=== PATIENT | female | born 1995 | race Caucasian/White ===

== ENCOUNTER → 2019-06-22 15:03 | Outpatient (CLI) | payer OTHER, MEDICAID, SELFPAY ==
--- NOTE | 2019-06-22 15:08 | DI.US.S_ITS ---
PROCEDURE: US OB <= 14 WEEKS FETUS INDICATIONS: SIZE AND DATES OUTSIDE/PRIOR DATING DATA: Last menstrual period (LMP): . LMP-based estimated date of delivery (KIM): 01/31/2020. First dating scan (date and location): 06/22/2019. Estimated date of delivery (KIM) from first dating scan: 02/03/2020. TECHNIQUE: Real-time scanning was performed of the fetus and maternal pelvic organs, with image documentation. COMPARISON: None. FINDINGS: Embryo: Mean gestational sac diameter of 3.0 cm corresponding to 8 weeks 0/7 days. [place] rump length measuring 1.43 cm corresponding to 7 weeks 5/7 days. heart rate 162 beats per minute. Yolk sac is visualized. No angelic-gestational hemorrhage. Measurement variability in dating: +/- 4 weeks by LMP, +/- 7 days by mean sac diameter (use before 6 weeks gestation if crown-rump length not able to be measured), +/- 5 days by crown-rump length (up to 8 weeks 6 days gestation), +/- 7 days by crown-rump length (up to 13 weeks 6 days gestation). Maternal organs: Right ovary is within normal limits. Probable right corpus luteum. Left ovary is not identified. Limited images through the kidneys demonstrate no hydronephrosis. Cervical length 3.4 cm. IMPRESSION: 1. Esquivel living intrauterine at 7 weeks 5/7 days based on today's crown-rump length. 2. No angelic-gestational hemorrhage. Dictated by: Edmund Powell M.D. on 06/22/2019 at 16:03 Approved by: Edmund Powell M.D. on 06/22/2019 at 16:06
== END ==
PROVIDERS: Visit Provider Specialist
DX: Z34.91 Encounter for supervision of normal pregnancy, unspecified, first trimester (principal); Z3A.01 Less than 8 weeks gestation of pregnancy
CPT/HCPCS: 76801

== ENCOUNTER → 2019-09-08 16:18 | Outpatient (CLI) | payer OTHER, MEDICAID, SELFPAY ==
[2019-09-08 17:40] LABS: Add Manual Diff / Slide Review NO; Basophils Absolute Auto 0 /uL (0-100); Basophils Percent Auto 0.2 % (0-2); Eosinophils Absolute Auto 600 /uL (0-450); Eosinophils Percent Auto 3.8 % (2-4); Hematocrit 38.2 % (36-46); Hemoglobin 13.1 g/dL (12.0-16.0); Lymphocytes Absolute Auto 1900 /uL (1100-4500); Lymphocytes Percent Auto 12.5 % (25-40); Mean Corpuscular HGB Conc 34.3 % (30-36); Mean Corpuscular Hemoglobin 30.7 PG (26-34); Mean Corpuscular Volume 89.6 fL (80-100); Monocytes Absolute Auto 900 /uL (0-900); Monocytes Percent Auto 6.2 % (3-14); Neutrophils Absolute Auto 11500 /uL (1500-7000); Neutrophils Percent Auto 77.3 % (50-75); Platelet Count 156 X10^3/uL (150-400); Red Blood Cell Count 4.26 X10^6/uL (4.0-5.2); Red Cell Distribution Width 12.9 % (11.6-14.8); White Blood Cell Count 14.9 X10^3/uL (4.5-11.0)
[2019-09-08 18:02] LABS: Appearance Urine UA SL CLOUDY; Bilirubin Urine UA NEGATIVE (NEGATIVE); Color Urine UA YELLOW; Glucose Urine UA NEGATIVE (Negative); Ketones Urine UA TRACE (NEGATIVE); Leukocyte Esterase Urine UA NEGATIVE (NEGATIVE); Nitrite Urine UA NEGATIVE (Negative); Occult Blood Urine UA NEGATIVE (Negative); Protein Urine UA NEGATIVE (Negative); Specific Gravity Urine UA 1.025 (1.000-1.035); Urobilinogen Urine UA 0.2 E.U./dL (0.2)
[2019-09-08 18:45] LABS: Hepatitis B Surface Antigen NEGATIVE s/c (NEGATIVE); Rubella Antibody IgG 73.6 IU/mL (>15)
[2019-09-08 18:57] LABS: HIV 1 & 2 Ab/Ag 4th Gen Combo NEGATIVE (NEGATIVE); Hep C Virus Ab w/Reflex Quant NEGATIVE s/c (NEGATIVE)
[2019-09-10 22:23] LABS: RPR Screen Nonreactive (Nonreactive)
[2019-09-11 12:15] LABS: AFP, Serum 44.5 ng/mL; Brief History NTD NG; Calc Gestational Age 19.3; Cigarette Smoker NOT GIVEN; Donated Egg NOT GIVEN; Donor Egg Age NOT GIVEN; Estriol, Free 0.99 ng/mL; Inhibin A, Dimeric 289 pg/mL; Maternal Weight 143 lbs; Number of Fetuses NOT GIVEN; Previous Pregnancy Down Syndro NOT GIVEN; hCG, MoM 1.52; hCG, Serum 32.6 IU/mL
[2019-09-11 13:00] LABS: HSV 1 IgM Screen Negative (Negative); HSV 2 IgM Screen Positive (Negative)
== END ==
PROVIDERS: Visit Provider Specialist
DX: Z34.02 Encounter for supervision of normal first pregnancy, second trimester (principal); Z3A.19 19 weeks gestation of pregnancy
CPT/HCPCS: 36415; 80055; 81003; 82105; 82677; 84702; 86336; 86695; 86696; 86787; 86803; 86850; 86900; 86901; 87077; 87086; 87389

== ENCOUNTER → 2019-09-17 08:42 | Outpatient (CLI) | payer OTHER, MEDICAID, SELFPAY ==
--- NOTE | 2019-09-17 08:46 | DI.US.S_ITS ---
PROCEDURE: US OB >= 14 WEEKS FETUS INDICATIONS: 20 WEEK ANATOMY OUTSIDE/PRIOR DATING DATA: Last menstrual period (LMP): 04/26/19. LMP-based estimated date of delivery (KIM): 01/31/20. First dating scan (date and location): 06/22/19. Estimated date of delivery (KIM) from first dating scan: 02/03/20. TECHNIQUE: Real-time scanning was performed of the fetus, with image documentation and biometric measurements. Endovaginal scanning: Not needed COMPARISON: [facility], , OB >= 14 WEEKS FETUS, 09/08/2019, 16:05. FINDINGS: General: A single living intrauterine gestation is present. Presentation: Vertex. Placenta: Placental position is posterior, without previa. Amniotic fluid index: 14.6 cm, normal range is 5-24 cm. heart rate: 135 beats per minute. Maternal cervical canal: 3.1 cm long. Normal lower limit is 2.5 cm. biometrics: Biparietal diameter: 4.7 cm, 20 weeks 0 days Head circumference: 17.4 cm, 20 weeks 0 days Abdominal circumference: 15.0 cm, 20 weeks 1 day Femur length: 3.1 cm, 19 weeks 4 day Estimated gestational age from initial scan: 20 weeks 1 day Composite gestational age from present scan: 19 weeks 6 days Estimated weight and percentile: 322 g, 34th percentile Measurement variability for biometric dating: +/- 7 days from 14 weeks to 15 weeks 6 days gestation, +/- 10 days from 16 weeks to 21 weeks 6 days gestation, +/- 2 weeks from 22 weeks to 27 weeks 6 days gestation, +/- 3 weeks for 28 weeks gestation or later. weight reference: 4500 g or EFW >90/95% is considered macrosomia or large for gestational age. EFW <10% is small for gestational age. EFW 5% or less is considered intra-uterine growth restriction. Anatomic survey: Neuro: Ventricles are non-dilated at less than 10 mm. Cisterna magna is normal at 3-11 mm. Cerebellum is normal in size and morphology. Nuchal skin fold: Normal at less than 6 mm between 14-21 weeks gestational age. Face: Nose and lips, facial profile are normal. Spine: Not well seen due to positioning Heart: 4-chambered heart is present, with normal ventricular outflow tracts. Diaphragm: Diaphragm is intact. Stomach: Left-sided stomach is present. Kidneys: No hydronephrosis. Normal is less than 5 mm in 2nd trimester, less than 7 mm in 3rd trimester. Cord: 3-vessel cord has eccentric insertion, 2.5 cm from the superior lateral placental edge. Bladder: Normal in size. Extremities: All 4 extremities identified. IMPRESSION: 1. Appropriate interval growth. 2. Relatively poor visualization of the spine due to 2 spine down positioning. Followup limited OB ultrasound in 7-10 days likely is warranted to complete the anatomic survey. 3. Eccentric placental cord insertion 2.5 cm from the superior lateral placental edge. This is considered a morphologic variant. Dictated by: Chucho Moon M.D. on 09/17/2019 at 10:36 Approved by: Chucho Moon M.D. on 09/17/2019 at 10:41
== END ==
PROVIDERS: Visit Provider Specialist
DX: Z34.02 Encounter for supervision of normal first pregnancy, second trimester (principal); Z3A.19 19 weeks gestation of pregnancy
CPT/HCPCS: 76811

== ENCOUNTER → 2019-10-01 07:53 | Outpatient (CLI) | payer OTHER, MEDICAID, SELFPAY ==
--- NOTE | 2019-10-01 07:54 | DI.US.S_ITS ---
PROCEDURE: US OB FOLLOW UP INDICATIONS: FOLLOW-UP SPINE OUTSIDE/PRIOR DATING DATA: Last menstrual period (LMP): 04/26/2019. LMP-based estimated date of delivery (KIM): 01/31/2020. First dating scan (date and location): 06/22/2019 [facility]. Estimated date of delivery (KIM) from first dating scan: 02/03/2020. TECHNIQUE: Real-time scanning was performed of the fetus, with image documentation. Endovaginal scanning: Not performed COMPARISON: [facility], , OB >= 14 WEEKS FETUS, 09/17/2019, 9:06. FINDINGS: A single living intrauterine gestation is present. Presentation: Vertex. Placenta: Placental position is posterior, without previa. Umbilical cord origin is approximately 2.2 cm from the placental edge. Amniotic fluid index: Not evaluated. heart rate: 139 beats per minute. Maternal cervical canal: 3.1 cm long. Normal lower limit is 2.5 cm. Estimated gestational age from initial scan: 22 weeks 1 day. spine was evaluated and is normal in appearance. IMPRESSION: 1. Esquivel living intrauterine at 22 weeks 1/7 days based on prior ultrasound. 2. Normal placenta and amniotic fluid. Umbilical cord origin and is 2.2 cm from the placental edge. 3. spine is normal in appearance. There complete the anatomic survey. Dictated by: Edmund Powell M.D. on 10/01/2019 at 10:15 Approved by: Edmund Powell M.D. on 10/01/2019 at 10:20
== END ==
PROVIDERS: Referring Provider Specialist; Visit Provider Specialist
DX: Z36.2 Encounter for other antenatal screening follow-up (principal); Z3A.22 22 weeks gestation of pregnancy
CPT/HCPCS: 76816

== ENCOUNTER → 2019-10-15 12:07 | Outpatient (CLI) | payer OTHER, MEDICAID, SELFPAY ==
[2019-10-15 13:23] LABS: Hematocrit 38.1 % (36-46); Hemoglobin 13.1 g/dL (12.0-16.0)
[2019-10-15 14:11] LABS: GTT (PREG) 1 Hour PP 50gm Dose 88 mg/dL (76-139)
== END ==
PROVIDERS: Referring Provider Specialist; Visit Provider Specialist
DX: O26.899 Other specified pregnancy related conditions, unspecified trimester (principal); Z67.91 Unspecified blood type, Rh negative
CPT/HCPCS: 36415; 82950; 85014; 85018; 86850

== ENCOUNTER → 2020-01-07 07:59 | Outpatient (CLI) | payer OTHER, MEDICAID, SELFPAY ==
[2020-01-08 14:21] LABS: Strep Grp B PCR NEG for Grp B Strep
== END ==
PROVIDERS: Visit Provider Specialist
DX: Z34.03 Encounter for supervision of normal first pregnancy, third trimester (principal)
CPT/HCPCS: 87653

== ENCOUNTER 2020-01-26 09:10 | Outpatient (CLI) | payer OTHER, MEDICAID, SELFPAY ==
--- NOTE | 2020-01-26 09:25 | PM.OBTRLD ---
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) ADHD (Chronic ~2010) Alcohol addiction (Acute) Asthma (Chronic ~2010) Chronic UTI (Acute) Depression with anxiety (Acute) Herpes (Inactive ~2016) History of bipolar disorder (Chronic) Surgical History (Updated 07/21/19 @ 20:43 by Corine Moore) Anesthesia (Resolved) Encounter for Implanon removal (Acute) [place] teeth removed (Acute) Family History (Updated 07/21/19 @ 20:44 by Corine Moore) Grandfather Melanoma Grandfather Cancer Sister Depression Anxiety Family/Other Alcoholism Grandmother Hypertension Social History marital status: unmarried,living together number of children: 0 household members: significant other education level: high school (1 year college) occupational status: employed current occupational exposures/hazards: No special alessio needs: No seatbelt use: always do you feel safe at home: Yes Smoking Status: Former smoker Tobacco: How many years used: 7 second hand exposure: Yes alcohol intake: former (in Recovery) substance use type: does not use during the past year weight has: remained stable caffeine: Yes Type(s) of exercise: walking Evaluation Evaluation Baseline heart rate: 140 Variability: Moderate (11-25) monitor accelerations: Present monitor decelerations: Absent Contraction Frequency (minutes): 0 Category of Tracing: I Cervical dilation (cm): 2 Cervical effacement (%): 80 station: -1 Diagnosis, Plan/Disposition Final Diagnosis (1) JANIYA (amniotic fluid index) borderline low: Status: Acute (2) 40 weeks gestation of : Status: Acute Plan/Disposition Plan: Patient is scheduled for induction in 2 days. Precautions reviewed OB Disposition: home
== END 2020-01-26 09:31 | disposition home or self-care (01) ==
LOC: OB 01-27 14:44
PROVIDERS: Referring Provider Specialist; Visit Provider Specialist
DX: O48.0 Post-term pregnancy (principal); O26.893 Other specified pregnancy related conditions, third trimester; Z3A.40 40 weeks gestation of pregnancy
CPT/HCPCS: 59025; G0378; G0379

== ENCOUNTER 2020-01-28 07:12 | Inpatient (IN) | payer OTHER, MEDICAID, SELFPAY ==
[2020-01-28 08:31] LABS: Add Manual Diff / Slide Review NO; Basophils Absolute Auto 100 /uL (0-100); Basophils Percent Auto 0.5 % (0-2); Eosinophils Absolute Auto 400 /uL (0-450); Eosinophils Percent Auto 2.7 % (2-4); Hematocrit 36.2 % (36-46); Hemoglobin 12.4 g/dL (12.0-16.0); Lymphocytes Absolute Auto 1800 /uL (1100-4500); Lymphocytes Percent Auto 11.5 % (25-40); Mean Corpuscular HGB Conc 34.3 % (30-36); Mean Corpuscular Hemoglobin 29.6 PG (26-34); Mean Corpuscular Volume 86.3 fL (80-100); Monocytes Absolute Auto 1300 /uL (0-900); Monocytes Percent Auto 8.3 % (3-14); Neutrophils Absolute Auto 12100 /uL (1500-7000); Platelet Count 165 X10^3/uL (150-400); Red Blood Cell Count 4.19 X10^6/uL (4.0-5.2); Red Cell Distribution Width 13.2 % (11.6-14.8); White Blood Cell Count 15.7 X10^3/uL (4.5-11.0)
[2020-01-28] MEDS: OXYTOCIN PREMIX 30 UNIT/500 ML PLAST..BAG IV (08:37)
[2020-01-28] MEDS: LACTATED RINGERS 1,000 ML 100 ML IV ×2 (08:37→16:10)
--- NOTE | 2020-01-28 08:58 | PM.OBHP.1 ---
OB HPI Date/Time Date of admission: 01/28/20 Date Patient Seen: 01/28/20 Time Patient Seen: 07:45 History of Present Condition Chief complaint: maternity : 1 Para: 0 Estimated Date of Delivery: 01/31/20 Estimated Gestational Age (weeks): 39 Narrative: Georgia Norris is a 24 year old female admitted for induction for or low JANIYA Indications Indication for induction OB: other (Low amniotic fluid volume) History of Present care: good care, initiated at week # (8), number of visits (12) and pounds weight gain (28) Dating criteria: LMP confirmed by 1st trimester US Ultrasounds: normal mid trimester US Obstetrical complications: none Medical complications: none Preadmission Labs Blood type: B (-) negative -: Antibody screen: negative, GBS status: negative, HBsAG: negative, HIV: negative and RPR/VDLR: negative -: Chlamydia screen: not detected and Gonorrhea screen: not detected -: Rubella: immune and Varicella: immune HCAB: negative Quad screen: Normal 1 hr GTT: 88 Evaluation Evaluation Baseline heart rate: 140 Variability: Moderate (11-25) monitor accelerations: Present monitor decelerations: Absent Contraction Frequency (minutes): 0 Category of Tracing: I Cervical dilation (cm): 2 Cervical effacement (%): 80 station: -1 Laboratory results: Laboratory Tests 01/28/20 08:00 WBC 15.7 H RBC 4.19 Hgb 12.4 Hct 36.2 MCV 86.3 MCH 29.6 MCHC 34.3 RDW 13.2 Plt Count 165 Neut % (Auto) 77.0 H Lymph % (Auto) 11.5 L [place] % (Auto) 8.3 Eos % (Auto) 2.7 Baso % (Auto) 0.5 Neut # (Auto) 43063 H Lymph # (Auto) 1800 [place] # (Auto) 1300 H Eos # (Auto) 400 Baso # (Auto) 100 PFSH Medical History (Updated 01/26/20 @ 09:26 by Nancy Mortensen MD) Addiction to drug (Acute) ADHD (Chronic ~2010) Alcohol addiction (Acute) Asthma (Chronic ~2010) Chronic UTI (Acute) Depression with anxiety (Acute) Herpes (Inactive ~2016) History of bipolar disorder (Chronic) Surgical History (Updated 07/21/19 @ 20:43 by Corine Moore) Anesthesia (Resolved) Encounter for Implanon removal (Acute) [place] teeth removed (Acute) Family History (Updated 07/21/19 @ 20:44 by Corine Moore) Grandfather Melanoma Grandfather Cancer Sister Depression Anxiety Family/Other Alcoholism Grandmother Hypertension Social History marital status: unmarried,living together number of children: 0 household members: significant other education level: high school (1 year college) occupational status: employed current occupational exposures/hazards: No special alessio needs: No seatbelt use: always do you feel safe at home: Yes Smoking Status: Former smoker Tobacco: How many years used: 7 second hand exposure: Yes alcohol intake: former (in Recovery) substance use type: does not use during the past year weight has: remained stable caffeine: Yes Type(s) of exercise: walking Meds Home Medications and Allergies Home Medications Medication Instructions Recorded Confirmed Type folic acid 800 mcg tablet 0.8 mg PO DAILY 06/24/19 01/26/20 History prenat.vits,ja,[id number] 1 tab PO DAILY 06/24/19 01/26/20 History acyclovir 800 mg tablet 800 mg PO DAILY #30 tab 12/24/19 01/26/20 Rx Allergies Allergy/AdvReac Type Severity Reaction Status Date / Time No Known Drug Allergies Allergy Verified 12/24/19 08:06 Review of Systems Review of Systems Narrative: Patient denies headaches, scotomata, epigastric pain. Denies any herpes symptoms. Good movement. No leakage of fluid. ROS: Yes All systems reviewed with the patient and are negative except as otherwise documented Exam Vital Signs (past 8 hours): Blood pressure 100/63, pulse of 93, temperature 96.7? Narrative Exam Narrative: HEENT exam within normal limits. Lungs are clear to auscultation percussion. Heart is regular rate and rhythm no S3-S4 or murmurs. Abdomen is gravid. Fetus is vertex. Extremities without edema and nontender. Objective Labs Result Diagrams: 01/28/20 08:00 Labs: Laboratory Results - last 24 hr 01/28/20 08:00 WBC 15.7 H RBC 4.19 Hgb 12.4 Hct 36.2 MCV 86.3 MCH 29.6 MCHC 34.3 RDW 13.2 Plt Count 165 Neut % (Auto) 77.0 H Lymph % (Auto) 11.5 L [place] % (Auto) 8.3 Eos % (Auto) 2.7 Baso % (Auto) 0.5 Neut # (Auto) 47295 H Lymph # (Auto) 1800 [place] # (Auto) 1300 H Eos # (Auto) 400 Baso # (Auto) 100 Assessment and Plan Assessment and Plan Assessment and Plan narrative: 39 week gestation with low amniotic fluid volume for induction. Anticipate vaginal delivery.
[2020-01-28 09:25] LABS: COVID19 -Nasal RAPID Negative (Negative)
[2020-01-28 11:19] VITALS: BP 100/63
[2020-01-28] MEDS: FENT 2MCG/ML BUPIV 0.125% EPI 200 MCG/100 ML PLAST..BAG 10 MCG EPIDURAL (16:30)
--- NOTE | 2020-01-28 22:31 | PM.OBPRVD ---
Events: Low Fluid Volume in Amniotic Sac Labor & Delivery Delivery date: 01/28/20 Intrapartal events: None Induction method: per pitocin protocol Delivery monitor: external FHT and external uterine Route of delivery: L&D Laceration Description: Perineal - 1st Degree Delivery repair: chromic (3 0) Estimated blood loss (mL): 100 Anesthesia type: Epidural Narrative: Patient arrived on Labor and delivery for induction for low JANIYA at 39 weeks. She was started on Pitocin. She was AROM for a small amount of fluid. She received an epidural catheter for pain control. There were intermittent episodes of variables and late decelerations but they responded to position changes, so category 1 to category 2 throughout labor. The patient delivered spontaneously, over an intact perineum. The viable female was placed on maternal abdomen. After the cord stopped pulsating the cord was clamped, cut, and cord bloods obtained. The placenta delivered spontaneously, intact, with 3 vessels. No cervical, vaginal tears. There was a periurethral tear on the right side that did not require suturing. There is a first-degree perineal tear that was repaired with 3 0 chromic suture. Both infant mother doing well. Baby 1: gender: Female Presentation: vertex position: Right Occiput Anterior Placenta delivery description: Spontaneous cord vessel description: 3 Vessels score (1 min): 8 score (5 min): 9 Plan for aftercare: Routine care
[2020-01-29 06:45] LABS: Add Manual Diff / Slide Review NO; Basophils Absolute Auto 200 /uL (0-100); Basophils Percent Auto 0.9 % (0-2); Eosinophils Absolute Auto 300 /uL (0-450); Eosinophils Percent Auto 1.5 % (2-4); Lymphocytes Absolute Auto 1600 /uL (1100-4500); Lymphocytes Percent Auto 8.5 % (25-40); Mean Corpuscular HGB Conc 34.4 % (30-36); Mean Corpuscular Hemoglobin 29.7 PG (26-34); Mean Corpuscular Volume 86.5 fL (80-100); Monocytes Absolute Auto 1600 /uL (0-900); Monocytes Percent Auto 8.5 % (3-14); Neutrophils Absolute Auto 15000 /uL (1500-7000); Neutrophils Percent Auto 80.6 % (50-75); Platelet Count 146 X10^3/uL (150-400); Red Blood Cell Count 4.05 X10^6/uL (4.0-5.2); White Blood Cell Count 18.6 X10^3/uL (4.5-11.0)
--- NOTE | 2020-01-29 10:57 | PM.OBDS.1 ---
Discharge Providers Provider Date of admission: 01/28/20 07:12 Discharge Date: 01/29/20 Consults: 01/28/20 08:18 Consult to Anesthesiology Urgent Comment: Consulting Provider: Anesthesiologist Reason for consultation: Epidural Has provider been notified: No 01/29/20 22:29 Consult to Electric Crane Operator Routine Comment: Discharge provider: Nancy Mortensen MD Summary Hospital Course Date Patient Seen: 01/29/20 Time Patient Seen: 10:57 Procedures: Pitocin induction, epidural catheter, spontaneous vaginal delivery, repair of first-degree tear Hospital Course: Patient arrived on Labor and delivery for induction for decreased amniotic fluid volume. She was started on Pitocin and received an epidural catheter for pain control. She had a spontaneous vaginal delivery of a viable female infant weighing 6 lb. She did well . She was breast-feeding without difficulty. She is urinating and ambulating well. Peripartum Data Infant Delivery Method: Natural Vaginal Laceration description: Perineal - 1st Degree Procedures: Pitocin induction, epidural catheter, spontaneous vaginal delivery, repair of first-degree perineal tear complications: none 1: Gender: Female Disposition of : home Discharge Diagnosis (1) Vaginal delivery: Status: Acute Status at Discharge Cognitive/behavioral status at discharge: oriented Functional status at discharge: independent ambulation Overall status at discharge: patient is progressing back to baseline Time Spent with Patient Time attestation: Total time spent providing and/or coordinating discharge services: Time spent: Less than 30 minutes Objective Labs Result Diagrams: 01/29/20 06:38 Labs: Laboratory Results - last 24 hr 01/29/20 06:38 WBC 18.6 H RBC 4.05 Hgb 12.0 Hct 35.0 L MCV 86.5 MCH 29.7 MCHC 34.4 RDW 13.0 Plt Count 146 L Neut % (Auto) 80.6 H Lymph % (Auto) 8.5 L [place] % (Auto) 8.5 Eos % (Auto) 1.5 L Baso % (Auto) 0.9 Neut # (Auto) 67912 H Lymph # (Auto) 1600 [place] # (Auto) 1600 H Eos # (Auto) 300 Baso # (Auto) 200 H Exam Vital Signs (past 8 hours): Blood pressure 96/49, pulse 72, temperature 36.2? Narrative Exam Narrative: Abdomen is soft, nontender. Uterus is firm, at U -1, nontender. Minimal lochia. Extremities without edema and nontender. Patient is rubella immune. She is Rh negative but so is the baby so no RhoGAM is indicated. She received Tdap in the 3rd trimester Discharge Plan Discharge Plan Patient Disposition: Home Discharge orders & Medications Prescriptions: New ibuprofen 600 mg Tablet 600 mg PO Q6HR PRN (Reason: Pain, Mild (1-3)) Qty: 20 RF: 0 Continued prenat.vits,ja,[id number] Tablet 1 tab PO DAILY RF: 0 Discontinued acyclovir 800 mg tablet 800 mg PO DAILY Qty: 30 RF: 0 Follow up/Referrals: Nancy Mortensen MD [Physician] - 1 Month Diet/Activity/Treatments Diet: Regular Activity: Nothing in vagina for 6 weeks Skin/Wound/Dressing Care Report to your healthcare provider any signs of infection, such as:: chills, fever and increased pain
[2020-01-29] MEDS: IBUPROFEN 600 MG TABLET PO (12:20)
[2020-01-29 12:37] VITALS: BP 110/57; PULSE 78; RESP 18; TEMP 36.3
== END 2020-01-29 15:01 | disposition home or self-care (01) | DRG 807 ==
PROVIDERS: Admitting Provider Specialist; Referring Provider Specialist; Visit Provider Specialist
DX: O41.03X0 Oligohydramnios, third trimester, not applicable or unspecified (principal); Z37.0 Single live birth; O70.0 First degree perineal laceration during delivery; Z3A.39 39 weeks gestation of pregnancy; Z11.59 Encounter for screening for other viral diseases
CPT/HCPCS: 01967; 36415; 59050; 59400; 59410; 85025; 86850; 86900; 86901; 87635; G0379; J2590

== ENCOUNTER → 2021-08-28 10:44 | Outpatient (CLI) | payer OTHER, SELFPAY ==
[2021-08-28 12:45] LABS: HCG Quantitative /Beta subunit 29037 mIU/mL
== END ==
PROVIDERS: Referring Provider Specialist; Visit Provider Specialist
DX: Z34.81 Encounter for supervision of other normal pregnancy, first trimester (principal)
CPT/HCPCS: 36415; 84702

== ENCOUNTER → 2021-08-30 10:40 | Outpatient (CLI) | payer OTHER, SELFPAY ==
[2021-08-30 12:53] LABS: HCG Quantitative /Beta subunit 36770 mIU/mL
== END ==
PROVIDERS: Referring Provider Specialist; Visit Provider Specialist
DX: Z34.81 Encounter for supervision of other normal pregnancy, first trimester (principal)
CPT/HCPCS: 36415; 84702

== ENCOUNTER → 2021-10-12 13:59 | Outpatient (CLI) | payer OTHER, SELFPAY ==
[2021-10-12 14:58] LABS: Appearance Urine UA CLEAR; Bilirubin Urine UA NEGATIVE (NEGATIVE); Color Urine UA YELLOW; Glucose Urine UA NEGATIVE (Negative); Ketones Urine UA NEGATIVE (NEGATIVE); Leukocyte Esterase Urine UA NEGATIVE (NEGATIVE); Nitrite Urine UA NEGATIVE (Negative); Occult Blood Urine UA NEGATIVE (Negative); Protein Urine UA NEGATIVE (Negative); Urobilinogen Urine UA 0.2 E.U./dL (0.2)
[2021-10-12 14:59] LABS: Add Manual Diff / Slide Review NO; Basophils Absolute Auto 0 /uL (0-100); Basophils Percent Auto 0.2 % (0-2); Eosinophils Absolute Auto 400 /uL (0-450); Eosinophils Percent Auto 3.8 % (2-4); Hematocrit 39.2 % (36-46); Hemoglobin 13.3 g/dL (12.0-16.0); Lymphocytes Absolute Auto 1900 /uL (1100-4500); Lymphocytes Percent Auto 18.1 % (25-40); Mean Corpuscular HGB Conc 33.8 % (30-36); Mean Corpuscular Hemoglobin 29.7 PG (26-34); Mean Corpuscular Volume 87.6 fL (80-100); Monocytes Absolute Auto 600 /uL (0-900); Monocytes Percent Auto 5.5 % (3-14); Neutrophils Absolute Auto 7800 /uL (1500-7000); Neutrophils Percent Auto 72.4 % (50-75); Platelet Count 185 X10^3/uL (150-400); Red Blood Cell Count 4.48 X10^6/uL (4.0-5.2); Red Cell Distribution Width 13.4 % (11.6-14.8); White Blood Cell Count 10.7 X10^3/uL (4.5-11.0)
[2021-10-12 15:01] LABS: pH Urine UA 6.5 (4.5-8.0)
[2021-10-13 06:13] LABS: RPR Screen Non Reactive (Non Reactive)
[2021-10-13 09:22] LABS: Varicella IgG Antibody 876 index (Immune >165)
[2021-10-15 15:36] LABS: Hepatitis B Surface Antigen NEGATIVE s/c (NEGATIVE); Rubella Antibody IgG 85.3 IU/mL (>15)
[2021-10-15 15:52] LABS: HIV 1 & 2 Ab/Ag 4th Gen Combo NEGATIVE (NEGATIVE); Hep C Virus Ab w/Reflex Quant NEGATIVE s/c (NEGATIVE)
== END ==
PROVIDERS: Referring Provider Specialist; Visit Provider Specialist
DX: Z34.81 Encounter for supervision of other normal pregnancy, first trimester (principal)
CPT/HCPCS: 36415; 80055; 81003; 86787; 86803; 86850; 86900; 86901; 87086; 87389

== ENCOUNTER → 2021-11-16 16:42 | Outpatient (CLI) | payer OTHER, SELFPAY ==
[2021-11-19 14:16] LABS: AFP, Serum 77.3 ng/mL (.); Estriol, Free 1.53 ng/mL (.); Inhibin A, Dimeric 248.17 pg/mL (.); Inhibin A, MoM 1.61 (.); Maternal Ethnicity Caucasian (.); Maternal Weight 145 lbs (.); Number of Fetuses No (.); OSBR Risk 1 IN 1278 (.); Results Report (.); Test Results *Screen Negative* (.); hCG, MoM 0.94 (.); hCG, Serum 30896 mIU/mL (.)
== END ==
PROVIDERS: Referring Provider Specialist; Visit Provider Specialist
DX: Z34.82 Encounter for supervision of other normal pregnancy, second trimester (principal); Z3A.17 17 weeks gestation of pregnancy
CPT/HCPCS: 36415; 82105; 82677; 84702; 86336

== ENCOUNTER → 2021-12-17 14:26 | Outpatient (CLI) | payer OTHER, MEDICAID, SELFPAY ==
--- NOTE | 2021-12-17 14:27 | DI.US.S_ITS ---
PROCEDURE: US OB >= 14 WEEKS FETUS INDICATIONS: 20 WEEK ANATOMY OUTSIDE/PRIOR DATING DATA: Last menstrual period (LMP): 07/16/2021. LMP-based estimated date of delivery (KIM): 04/22/2022. First dating scan (date and location): 09/14/2021 Estimated date of delivery (KIM) from first dating scan: 04/23/2022. The calculations are made using the ultrasound KIM of 04/23/2022. TECHNIQUE: Real-time scanning was performed of the fetus, with image documentation and biometric measurements. COMPARISON: [facility], , US OB >= 14 WEEKS FETUS, 11/16/2021, 16:20. FINDINGS: General: A single living intrauterine gestation is present. Presentation: Vertex. Placenta: Placental position is anterior, without previa. Amniotic fluid index: 15 cm, normal range is 5-24 cm. Single deepest vertical pocket is 4.2 cm. heart rate: 139 beats per minute. Maternal cervical canal: 4.6 cm long. Normal lower limit is 2.5 cm. Biometric measurements: BPD: 5.2 cm, 21 weeks 5 days HC: 19.9 cm, 22 weeks 0 days AC: 18 cm, 22 weeks 6 days FL: 3.8 cm, 22 weeks 2 days Clinically estimated gestational age: 21 weeks 6 days Composite gestational age from present scan: 22 weeks 2 days Estimated weight and percentile: 508 g, 76 percentile Anatomic survey: Neuro: Ventricles are non-dilated at less than 10 mm. Cisterna magna is normal at 3-11 mm. Cerebellum is normal in size and morphology. Nuchal skin fold: Normal at less than 6 mm between 14-21 weeks gestational age. Face: Nose and lips, facial profile are normal. Spine: No evidence for spina bifida. Heart: 4-chambered heart is present, with normal ventricular outflow tracts. Diaphragm: Diaphragm is intact. Stomach: Left-sided stomach is present. Kidneys: No hydronephrosis. Normal is less than 5 mm in 2nd trimester, less than 7 mm in 3rd trimester. Cord: 3-vessel cord has orthotopic insertion. Bladder: Normal in size. Extremities: All 4 extremities identified. IMPRESSION: 1. Esquivel living intrauterine at 22 weeks 2 days based on today's ultrasound. This is concordant with the prior ultrasound. Fetus is in the 76 percentile for weight. 2. Normal placenta and amniotic fluid. 3. Normal and complete anatomic survey. We strive to produce accurate, complete, and clear reports of imaging services. To assist us in improving patient care, this report was composed using standard report templates and voice recognition software. Therefore, it may contain abnormal punctuation, insertions and/or omissions. Occasional wrong-word or sound-alike substitutions may occur. Though we review the report and make efforts to correct it, we do recommend that the report be read carefully in proper context to recognize any text inaccuracies. Dictated by: Edmund Powell M.D. on 12/17/2021 at 17:25 Approved by: Edmund Powell M.D. on 12/17/2021 at 17:31
== END ==
PROVIDERS: Referring Provider Specialist; Visit Provider Specialist
DX: Z34.82 Encounter for supervision of other normal pregnancy, second trimester (principal); Z3A.22 22 weeks gestation of pregnancy
CPT/HCPCS: 76811

== ENCOUNTER → 2022-01-17 11:44 | Outpatient (CLI) | payer OTHER, MEDICAID, SELFPAY ==
[2022-01-17 12:29] LABS: Hematocrit 37.3 % (36-46); Hemoglobin 13.2 g/dL (12.0-16.0)
== END ==
PROVIDERS: Referring Provider Specialist; Visit Provider Specialist
DX: O26.899 Other specified pregnancy related conditions, unspecified trimester (principal); Z67.91 Unspecified blood type, Rh negative
CPT/HCPCS: 36415; 85014; 85018; 86850

== ENCOUNTER → 2022-01-18 10:48 | Outpatient (CLI) | payer OTHER, SELFPAY ==
[2022-01-18 13:30] LABS: GTT (PREG) 1 Hour PP 50gm Dose 77 mg/dL (76-139)
== END ==
PROVIDERS: Referring Provider Specialist; Visit Provider Specialist
DX: Z34.82 Encounter for supervision of other normal pregnancy, second trimester (principal); Z3A.26 26 weeks gestation of pregnancy
CPT/HCPCS: 36415; 82950

== ENCOUNTER → 2022-03-28 09:55 | Outpatient (CLI) | payer OTHER, MEDICAID, SELFPAY ==
[2022-03-29 17:53] LABS: Strep Grp B PCR NEG for Grp B Strep
== END ==
PROVIDERS: Visit Provider Obstetrics & Gynecology
DX: Z34.83 Encounter for supervision of other normal pregnancy, third trimester (principal); Z3A.36 36 weeks gestation of pregnancy
CPT/HCPCS: 87653

== ENCOUNTER 2022-04-24 01:49 | Outpatient (CLI) | payer OTHER, MEDICAID, SELFPAY | END 2022-04-24 02:51 | disposition home or self-care (01) | LOC: LABOR 01:53 → OB 08:27 | PROVIDERS: Referring Provider Obstetrics & Gynecology; Visit Provider Obstetrics & Gynecology | DX: O47.1 False labor at or after 37 completed weeks of gestation (principal); O48.0 Post-term pregnancy; Z3A.40 40 weeks gestation of pregnancy | CPT/HCPCS: 59025; G0378; G0379 ==

== ENCOUNTER 2022-04-25 07:08 | Inpatient (IN) | payer OTHER, MEDICAID, SELFPAY ==
--- NOTE | 2022-04-25 08:13 | P.HPOB_ITS ---
OB HPI Date/Time Date of admission: 04/25/22 Date Patient Seen: 04/25/22 Time Patient Seen: 07:50 History of Present Condition Chief complaint: OBS OF LABOR KIM Calculator Estimated Delivery Date Method Current WG Current Estimate 04/22/22 LMP (Uncertain) 40w 3d Other Estimates 04/24/22 Ultrasound #1 40w 1d Estimated Gestational Age (weeks): 40 : 3 Para: 1 Narrative: 27-year-old female presents at 40 weeks 3 days in active labor. She developed some mild contractions 2 days ago which persisted on and off. This morning contractions became more regular and strong. Denies leakage of fluid or vaginal bleeding. Feeling good movement. has been uncomplicated. She has a history of substance addiction, clean and sober for 3 years. Appropriately desires to avoid any narcotic pain medication. care: good care Dating criteria OB: LMP confirmed by 1st trimester US Ultrasounds: normal 1st trimester US and normal mid trimester US Medical complications OB: none Preadmission Labs Last OB Lab Results: Blood Type B Negative 04/25/22 08:00 Antibody Screen Positive 04/25/22 08:00 Hematocrit 41.4 % (36-46) 04/25/22 08:00 Hemoglobin 14.1 g/dL (12.0-16.0) 04/25/22 08:00 Hepatitis B Surface Antigen Negative s/c (NEGATIVE) 10/12/21 14 :10 Hepatitis C Antibody Negative s/c (NEGATIVE) 10/12/21 14:10 Rubella Antibody 85.3 IU/mL (>15) 10/12/21 14:10 Varicella-Zoster IgG Antibody 876 index (Immune >165) 10/12/21 14:10 Glucose 1 Hour 77 mg/dL (76-139) 01/18/22 12:01 Group B Streptococcus (PCR) Neg for grp b strep 03/28/22 09:55 -: Chlamydia screen: negative and Gonorrhea screen: negative -: PAP smear: Normal Genetic Screens: Quad screen: Normal External Labs Blood type OB HPI: B (-) negative -: Antibody screen: negative, HBsAG: negative, HIV: negative, RPR/VDLR: negative, Chlamydia screen: negative, Gonorrhea screen: negative and GBS status: negative -: Rubella: immune and Varicella: immune HCAB: negative PAP: Normal Genetic Screens: Quad screen: Normal Prior (ies) Past Pregnancies Del. Date GA/Weeks Labor Lgth Wt Sex Route Outcome Anesthesia Place Delv Breastfeed Preg Comp Name 01/28/20 39 15 6 lb Female vaginal live - full term epidural [facility] 11 plus months oligohydramnios Maeve Cortés Halbur 07/16/21 spontaneous spontaneous Delivery Date: 01/28/20 Last Updated by: Leigha Pizarro R.N. 39 week induction for oligo. IRWIN lost a child to SIDS at 20 days old; 10 years ago with previous partner Evaluation Evaluation Baseline heart rate: 135 Variability: Moderate (11-25) monitor accelerations: Present Monitor Decelerations: Absent Contraction Frequency (minutes): 3 Uterine Contraction Intensity: Moderate Category of Tracing: Reactive Status: Category l Dilation (cm): 5 PFSH Medical History (Updated 09/14/21 @ 17:10 by Nancy Mortensen MD) Addiction to drug (~2012) ADHD (~2010) Alcohol addiction (~2012) Asthma (~2010) Chronic UTI Complete miscarriage (~07/16/21) Depression with anxiety Herpes (~2016) History of bipolar disorder Vaginal delivery (~01/28/20) Surgical History (Updated 09/07/21 @ 10:26 by Leigha Pizarro RN) Anesthesia Encounter for Implanon removal (~03/2021) [place] teeth removed Family History (Updated 07/21/19 @ 20:44 by Corine Moore) Grandfather Melanoma Grandfather Cancer Sister Depression Anxiety Family/Other Alcoholism Grandmother Hypertension Social History marital status: (in May 2020) number of children: 1 household members: spouse and children lives independently: Yes caregiver/support person: No housing: house pets and animals: Yes (Dog only, 1 outdoor cat) education level: high school 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[employer]) current occupational exposures/hazards: No special alessio needs: No travel history: over 6 months ago ([place] for [employer] - 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 Aware of limits. 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 ) and normal ROM and activity (Outside play & walks with her toddler.) frequency: 1-2 times per week duration: 30-45 minutes/day Meds Home Medications and Allergies Home Medications Medication Instructions Recorded Confirmed Type prenat.vits,ja,flh-tepq-eiemr 1 tab PO DAILY 06/24/19 04/25/22 History ondansetron 4 mg disintegrating 4 mg PO Q8H nausea #20 tabs 10/08/21 04/25/22 Rx tablet CMP triple nipple 30 g topical DIRECTED #30 grams 04/09/22 04/17/22 Rx valacyclovir 500 mg tablet 500 mg PO BID #60 tabs 04/09/22 04/25/22 Rx Allergies Allergy/AdvReac Type Severity Reaction Status Date / Time No Known Drug Allergies Allergy Verified 04/17/22 07:54 OB Exam Narrative Exam Narrative: Afebrile BP 124/67 Pulse 73 Objective Labs Result Diagrams: 04/25/22 08:00 Assessment and Plan Assessment and Plan Assessment and Plan narrative: 27 yo female @ 40+ weeks, , labor, GBS negative. EFM category 1 Admit. Routine labs. Expectant care, anticipate She desires to attempt natural childbirth, but is considering epidural which u se with the last . She will avoid using any narcotic IV pain medicine due to history of prior addiction. Discussed option for nitrous gas as well. Time Spent with Patient Total time spent with greater than 50% in coordination of care (as documented) at patient's floor/unit and/or counseling patient:: less than 15 minutes
[2022-04-25 08:25] LABS: Add Manual Diff / Slide Review NO; Basophils Absolute Auto 0 /uL (0-100); Basophils Percent Auto 0.3 % (0-2); Eosinophils Absolute Auto 400 /uL (0-450); Eosinophils Percent Auto 2.9 % (2-4); Hematocrit 41.4 % (36-46); Hemoglobin 14.1 g/dL (12.0-16.0); Lymphocytes Absolute Auto 2000 /uL (1100-4500); Mean Corpuscular HGB Conc 34.1 % (30-36); Mean Corpuscular Hemoglobin 30.8 PG (26-34); Mean Corpuscular Volume 90.4 fL (80-100); Monocytes Absolute Auto 1000 /uL (0-900); Monocytes Percent Auto 6.8 % (3-14); Neutrophils Absolute Auto 11700 /uL (1500-7000); Platelet Count 138 X10^3/uL (150-400); Red Blood Cell Count 4.58 X10^6/uL (4.0-5.2); Red Cell Distribution Width 13.6 % (11.6-14.8); White Blood Cell Count 15.2 X10^3/uL (4.5-11.0)
[2022-04-25 08:36] LABS: COVID19 -Nasal RAPID Negative (Negative)
[2022-04-25] MEDS: LACTATED RINGERS 1,000 ML 100 ML IV ×2 (09:41→10:39)
[2022-04-25 09:42] VITALS: BP 124/67
--- NOTE | 2022-04-25 13:20 | PM.OBPRVD ---
Labor & Delivery Delivery date: 04/25/22 Intrapartal Events: Deceleration Cervical ripening method: none Induction method: none Delivery augmentation: rupture of membranes Delivery monitor: external FHT Route of delivery: L&D Laceration Description: Periurethral - 1st Degree and Vaginal - 2nd Degree Delivery repair: chromic Estimated blood loss (mL): 300 Quantitative Blood Loss: 300 Anesthesia Type: Epidural Complications: none Baby 1: gender: Male Presentation: vertex Position: Right Occiput Anterior Placenta delivery description: Spontaneous Cord Vessel Description: 3 Vessels, Nuchal Cord and Around Body x1 score (1 min): 9 score (5 min): 9 weight: 6 lb 8.869 oz Narrative: She presented at 5 cm in active labor, initially desired nothing for pain relief, with intention not to use any narcotics due to history of prior addiction. Did not desire epidural initially. as she progressed in labor, she eventually desired and received an epidural. At 8 cm FHR began having moderate to severe variable deceleration with good recovery to baseline, 125 baseline with moderate variability. With position change variable decelerations Initially improved to mild to moderate and were not with every contraction. Within 30 minutes however she was having frequent moderate variable deceleration again, with good recovery and moderate variability between contractions. On exam she was 9 cm with slight bulging membranes. Membranes artificially ruptured for clear fluid. Within 15 minutes she was completely dilated. During the exam she had had 2 moderate to severe variable deceleration, but variable decelerations improved to mild after repositioning after the exam. Within 15 minutes she was completely dilated and began pushing. EFM remained category 2 with pushing with variable decelerations improved to mild and intermittent, possibly some moderate variable decelerations when EFM not picked up at time she was actively pushing. EFM variability remained moderate, normal baseline at 130.. She was bringing the head down well with pushing. With the last contraction she did have moderate to severe variable deceleration as the head was FHR in the 70s, but she proceeded to push and deliver the head quickly. Second stage was 40 minutes. She had a spontaneous vaginal delivery over an intact perineum. She delivered the head in a controlled fashion. Nuchal cord x 1 was present, which was not tight, but could not easily be reduced. She was instructed to push to deliver the baby through the cord. ?Anterior followed by posterior shoulder were delivered without difficulty with the patient pushing, followed by the remainder of the body. Cord was wrapped around the baby's leg once, over the body to the shoulder and around the neck x 1, and cord was unwrapped around the baby. Baby was vigorous, crying spontaneously and was placed on the maternal abdomen. ?A baby boy was delivered at 1255. ?After 1 minute, cord was clamped and then cut by the father the baby Placenta delivered spontaneously approximately 30minutes later. ?She had normal bleeding after delivery of the placenta. ?She was given routine Pitocin IV. On inspection she had a small midline distal second-degree vaginal laceration which was repaired in the usual fashion with 3-0 chromic. she had thin bilateral 1st degree periurethral of lacerations which were hemostatic and not repaired. The vaginal sidewall was intact. The cervix palpated to be intact. She did well and was left to recover in good condition. . Plan for aftercare: Routine care
[2022-04-25] MEDS: IBUPROFEN 600 MG TABLET PO ×2 (17:36→22:27)
[2022-04-25] MEDS: ACETAMINOPHEN 325 MG TABLET 650 MG PO (20:55)
[2022-04-26] MEDS: ACETAMINOPHEN 325 MG TABLET 650 MG PO (02:34)
[2022-04-26] MEDS: IBUPROFEN 600 MG TABLET PO (05:18)
--- NOTE | 2022-04-26 11:32 | P.DS_ITS ---
Discharge Providers Provider Date of admission: 04/25/22 07:08 Discharge Date: 04/26/22 Consults: 04/26/22 13:46 Consult to Lean Manufacturing Coordinator Routine Comment: Discharge provider: Milana Briceño MD Summary Hospital Course Date Patient Seen: 04/26/22 Time Patient Seen: 09:50 Diagnoses: 40 week , labor,delivered status post spontaneous vaginal delivery and delivery of a small second-degree distal vaginal laceration Hospital Course: 27-year-old female presented at 40+ with weeks in spontaneous labor. She presented 5 cm dilated. She initially labored without any analgesia, using the shower and birthing ball. Eventually she desired an epidural and received an epidural with good pain relief. She progressed in labor to completely dilated. EFM was category 2 with some intermittent moderate to occasional severe variable deceleration in the active phase. She did progress quickly to pushing and delivered a viable vigorous male . there was a nuchal and body cord which was reduced. Apgars were 9 and 9. See delivery note. She has had a normal course. she has remained afebrile and blood pressure is normal. She feels well, lochia has been normal. She does not have any significant vulvo-vaginal or perineal discomfort. she has had a normal course. The baby is well and doing well. Baby's blood type was Rh negative, thus patient does not need any RhoGAM for her Rh negative blood type. She desires discharge home today and is being discharged in good condition. Peripartum Data Infant Delivery Method: Natural Vaginal Laceration Description: Periurethral - 1st Degree and Vaginal - 2nd Degree complications: none 1: Gender: Male Time Spent with Patient Time attestation: Total time spent providing and/or coordinating discharge services: Time spent: Less than 30 minutes Objective Labs Result Diagrams: 04/25/22 08:00 Labs: Laboratory Results - last 24 hr 04/25/22 08:00 Antibody Identification Anti-D Exam Vital Signs (past 8 hours): Temp 97.7 BP 98/64, Pulse 77 Narrative Exam Narrative: General: Well-appearing female Abdomen: Soft, nontender, nondistended. Fundus U-1, firm, nontender Extremities: No pedal edema Discharge Plan Discharge Plan Patient Disposition: Home Provider Discharge Comment: 40 week delivered status post labor and spontaneous vaginal delivery and repair of small distal vaginal second-degree laceration. Discharge orders & Medications Prescriptions: New acetaminophen 325 mg Tablet 650 mg PO Q6HR PRN (Reason: Pain, Mild (1-3)) Qty: 20 0RF ibuprofen 600 mg Tablet 600 mg PO Q6HR PRN (Reason: Pain, Mild (1-3)) Qty: 30 0RF Continued prenat.vits,aj,[id number] Tablet 1 tab PO DAILY CMP triple nipple 30 g topical DIRECTED Qty: 30 7RF Rx Instructions: Apply to nipple after each feeding. Unlimited refills for one year. Discontinued ondansetron 4 mg tablet,disintegrating 4 mg PO Q8H Qty: 20 2RF valacyclovir 500 mg tablet 500 mg PO BID Qty: 60 1RF Rx Instructions: for suppression Medication counseling provided by Pharmacist: No Follow up/Referrals: Milana Briceño MD [Physician] - 6 Weeks ( visit) Discharge Health Status Multidrug resistant organism: No MDRO Diet/Activity/Treatments Diet: Regular Skin/Wound/Dressing Care Report to your healthcare provider any signs of infection, such as:: chills, fever, increased pain and unusual drainage Visit Report/Discharge Packet Instructions: DI for Labor and Delivery, Vaginal
== END 2022-04-26 12:11 | disposition home or self-care (01) | DRG 806 ==
PROVIDERS: Family Medicine; Admitting Provider Obstetrics & Gynecology; Referring Provider Obstetrics & Gynecology; Visit Provider Obstetrics & Gynecology
DX: O70.1 Second degree perineal laceration during delivery (principal); O36.0130 Maternal care for anti-D [Rh] antibodies, third trimester, not applicable or unspecified; Z37.0 Single live birth; O47.1 False labor at or after 37 completed weeks of gestation; Z3A.40 40 weeks gestation of pregnancy; O69.81X0 Labor and delivery complicated by cord around neck, without compression, not applicable or unspecified; Z20.822 Contact with and (suspected) exposure to COVID-19; O76 Abnormality in fetal heart rate and rhythm complicating labor and delivery; Z67.21 Type B blood, Rh negative; O48.0 Post-term pregnancy
CPT/HCPCS: 01967; 36415; 59025; 59050; 59400; 85025; 86850; 86870; 86900; 86901; 87635; C9803; G0379